=== PATIENT | male | born 1960 | race Two or more races ===

== ENCOUNTER 2020-01-05 19:46 | Emergency (ER) | payer SELFPAY ==
[~2020-01-05] VITALS: Ht 165.1 cm; Wt 72.6 kg
--- NOTE | 2020-01-05 20:07 | Emergency Room Report ---
History of Present Illness General Chief Complaint: Substance Abuse Source: Patient, EMS (Jules Sullivan MD) Present Illness HPI 59-year-old male history of alcohol abuse presents with mechanical fall after drinking a bottle of whiskey, patient hit his left knee, patient was able to ambulate afterwards he denies hitting his head, he endorses left knee pain worse with movement alleviated throughout severity is mild, intermittent patient is able to ambulate patient presents for evaluation via EMS for alcohol intoxication as well as left knee pain (Jules Sullivan MD) Allergies: Coded Allergies: No Known Allergies (Unverified , 01/05/20) Patient History Past Medical History: see triage record Reviewed Nursing Documentation: PMH: Agreed; PSxH: Agreed (Jules Sullivan MD) Nursing Documentation-PMH Past Medical History: No Stated History (Jules Sullivan MD) Review of Systems All Other Systems: negative except mentioned in HPI (Jules Sullivan MD) Physical Exam Vital Signs Date Time Temp Pulse Resp B/P (MAP) Pulse Ox O2 Delivery O2 Flow Rate FiO2 01/05/20 19:54 98.4 105 19 114/68 (83) 99 Room Air Sp02 EP Interpretation: reviewed, normal General Appearance: well appearing, no apparent distress, alert Head: normocephalic, atraumatic Eyes: bilateral eye PERRL, bilateral eye EOMI ENT: uvula midline, moist mucus membranes Neck: supple, thyroid normal, supple/symm/no masses Respiratory: lungs clear, no respiratory distress, no retraction, no accessory muscle use Cardiovascular #1: normal peripheral pulses, regular rate, rhythm, no edema, no gallop, no murmur Gastrointestinal: non tender, soft, no guarding, no rebound Musculoskeletal: other - Left lower extremity: Tenderness to palpation left knee, valgus varus stress negative, anterior posterior drawer negative, popliteal pulse intact, no obvious deformity, abrasions on the surface Neurologic: alert, oriented x3 Psychiatric: mood/affect normal Skin: no rash, warm/dry (Jules Sullivan MD) Medical Decision Making Diagnostic Impression: Primary Impression: Alcohol abuse Additional Impression: Alcohol intoxication Qualified Codes: F10.920 - Alcohol use, unspecified with intoxication, uncomplicated ER Course 59-year-old male presents with most likely a contusion to the right knee additionally patient is also intoxicated We will continue to monitor patient until he favio Disposition home with return precautions once sober (Jules Sullivan MD) Other X-Ray Diagnostic Results Other X-Ray Diagnostic Results : X-Ray ordered: Right knee # of Views/Limited Vs Complete: 3 View Indication: Pain EP Interpretation: Yes Interpretation: no dislocation, no soft tissue swelling, no fractures Impression: No acute disease Electronically Signed by: Jules Sullivan MD (Jules Sullivan MD) Last Vital Signs Date Time Temp Pulse Resp B/P (MAP) Pulse Ox O2 Delivery O2 Flow Rate FiO2 01/05/20 19:54 98.4 105 19 114/68 (83) 99 Room Air (Jules Sullivan MD) Reevaluation Time: 04:57 Reevaluation Impression Assumed care of the patient approximately 2300 hrs. from previous provider Briefly, this is a 59-year-old male presenting for alcohol intoxication. He was allowed to metabolize in the emergency department is now clinically sober. He is drinking water, eating sandwich and ambulatory with a steady gait in the emergency department. Counseled him on excessive alcohol use and its dangers. He will follow-up with his PMD. Safe for outpatient follow-up (Suleman Salinas MD) Disposition: HOME, SELF-CARE Condition: Stable Referrals: [facility] Patient Instructions: Alcohol Intoxication, [id number], Knee Sprain, Easy-to- Read Additional Instructions: The patient was provided with discharge instructions, notified to follow-up with a primary care doctor and or specialist in the next 24-48 hours, and to return to the ED if they have worsening of their symptoms. Please note that this report is being documented using [employer] technology. This can lead to erroneous entry secondary to incorrect interpretation by the dictating instrument. Jules Sullivan MD Jan 05, 2020 20:07 Suleman Salinas MD Jan 06, 2020 04:58
[2020-01-05 20:10] VITALS: BP 114/68
--- NOTE | 2020-01-05 20:15 | NUR ---
ED Nurse Note: Patient was BIBA RA 26 c/o left knee pain due to fall, ETOH. Unk amount of alcohol. Patient presented calm, AAO x2, VSS at this time.
[2020-01-05] MEDS ORDERED: Tetanus/Diptheria/Pertussis IM ONE (20:30)
[2020-01-06 05:04] VITALS: BP 110/69
--- NOTE | 2020-01-06 05:04 | NUR ---
ED Nurse Note: Pt cleared by ERMD for discharge. DC instructions was given and explained to pt and verbalized understanding of teachings. All medical deviecs such as ID band removed. Pt is AAO x4, ambulatory and left with all personal belongings. Pt will take a bus going home.
--- NOTE | 2020-01-06 16:24 | Diagnostic Imaging Report ---
Indication: Knee pain, status post fall Technique: 1-2 views of the left knee Comparison: None Findings: No suprapatellar effusion. No acute fractures. No dislocations. The joint spaces are preserved. Impression: Negative
== END 2020-01-06 05:10 | disposition home or self-care (01) ==
LOC: EDBD 19:46 → EMR 23:49
DX: F10.129 Alcohol abuse with intoxication, unspecified (principal); M25.562 Pain in left knee; Z23 Encounter for immunization
CPT/HCPCS: 90471; 90715; 99283